=== PATIENT | female | born 1975 | race Caucasian/White ===

== ENCOUNTER 2016-09-09 11:23 | Emergency (ER) | payer OTHER ==
[~2016-09-09] VITALS: Ht 165.1 cm; Wt 74.0 kg
[2016-09-09 11:43] VITALS: BP 114/81; PULSE 75; RESP 16; O2SAT 100
--- NOTE | 2016-09-09 11:56 | ED.REPORT ---
HPI-Chest Pain 40 and Over Date of Service Sep 09, 2016 ED Provider: Ryan Coronado MD History of Present Illness: Please note the actual complaint is palpitations, there is no template for palpitations in the system, so this template proceeded The patient is a 40 year old female with history of rheumatoid arthritis and Harsh's thyroiditis disease, who was sent to the emergency department from urgent care for palpitations that she began 3 nights ago. On Wednesday night she noticed about 3 flutters a minute from 10 PM to 4 AM. The next evening it occurred again from 7 PM to 12 AM. Last night she noticed flutters every 9-13 heart beats. Along with the palpitations she has also experienced chest "soreness." Her pain radiates to the left side of her jaw. On her walk yesterday she was more breathless than normal. She has noticed fluttering for quite a while but it has never been this severe or frequent. She has not noticed shortness of breath at rest, nausea, diaphoresis, lower extremity swelling. She does report 30 pound weight gain since December. She denies recent changes in medications. Her mother of congestive heart failure in her late 50's. Nursing Notes Stated Complaint: HEART ISSUES Chief Complaint: Chest Pain Nursing Notes Reviewed: Yes ([employer] not reconciled) Allergies: Coded Allergies: Penicillins (Verified Allergy, Severe, 12/25/08) Sulfa (Sulfonamide Antibiotics) (Verified Adverse Reaction, Intermediate, Hives, 09/09/16) erythromycin base (Verified Adverse Reaction, Intermediate, unknown, ) General Time Seen by MD: 11:54 Chief Complaint Chest pain, Other (palpitations) Hx Obtained From: Patient Arrived By: Walk-in Sudden in Onset?: Yes Onset Occurred: 3 days ago Symptom Duration: Intermittent Location: : Chest left: Chest right Quality: Painful (soreness) Radiation: : Jaw Severity: Current: Pain level 2 out of 10 Severity: Maximum: Severe Recent Healthcare: No recent hospitalization, Recent doctor visit Similar Sx Previous: Yes Risk Factors )( PE Risk Stratification Other (rheumatoid ) Past Medical History Past Medical History h/o rheumatoid arthritis (on hydroxychloroquine, prednisone, and Xeljianz) Harsh's thyroiditis Past Surgical History None Family History Mother of congestive heart failure on her late 50's. IA in 's Smoking History Never Smoker Social History Alcohol Use: Denies alcohol use Drug Use: Denies drug use Other Social History: Good social support, , Lives with children, Local resident Occupation [employer] Status Independent Review of Systems Review of Systems Note: +jaw pain + recent weight gain Respiratory: Reports: Dyspnea on exertion, Denies: Shortness of breath Cardiovascular: Reports: Chest pain, Palpitations GI: Denies: Nausea Skin: Denies Diaphoresis Complete sys rev & neg: except as marked. Physical Exam Initial Vital Signs Vital Signs (First) Date Time Temp Pulse Resp B/P Pulse Ox O2 Delivery O2 Flow Rate FiO2 09/09/16 11:43 37.2 75 16 114/81 100 09/09/16 12:10 Room Air Initial VS: Reviewed, Vital signs normal Head / Eyes: Atraumatic, Normocephalic, PERRL ENT: Mucous membranes moist, Conjunctiva normal, No scleral icterus Neck: Supple, Non-tender, Full range of motion Lymphatic: No lymphadenopathy Extremities: Vascular intact, Neuro intact, No swelling, No tenderness Skin: Warm, Dry, No cyanosis Neurologic: Alert, Oriented, Nonfocal Psychiatric: Mood/affect normal, Behavior normal, Normal thought content General/Constitutional: Awake, Alert, No acute distress, Well appearing Respiratory / Chest: Atraumatic, Breath sounds NL, Breath sounds = bilat, No respiratory distress, No rales, No rhonchi, No wheezing, No stridor, No chest tenderness Cardiovascular: Heart rate NL, Regular rhythm, Heart sounds NL, No murmurs, Peripheral circulation NL, Pulses = bilaterally, No gross BP differential Abdomen: Atraumatic, Soft, Non-tender, McBurney's non-tender, No guarding, No rebound, BS normoactive, No distention, No hernia, No palpable mass Interpretation & Diagnostics Lab Results Interpretation Result Diagram: 09/09/16 1121 09/09/16 1121 Test 09/09/16 11:21 09/09/16 12:30 09/09/16 13:20 09/09/16 14:30 White Blood Count 7.0th/mm3 (3.8-10.1) Red Blood Count 4.31mil/mm3 (3.90-5.20) Hemoglobin 11.9g/dL (12.0-15.6) Hematocrit 37.2% (35.0-46.0) Mean Corpuscular Volume 86.3fL (81-100) Mean Corpuscular Hemoglobin 27.6pg (27.0-35.0) Mean Corpuscular Hemoglobin Concent 32.0% (32.0-37.0) Red Cell Distribution Width 13.7% (12.3-15.4) Platelet Count 236bil/L (150-400) Neutrophils (%) (Auto) 68.7% (40-74) Lymphocytes (%) (Auto) 17.9% (14-46) Monocytes (%) (Auto) 11.5% (4-12) Eosinophils (%) (Auto) 1.4% (0-5) Basophils (%) (Auto) 0.4% (0-3) Sodium Level 137mEq/L (134-144) Potassium Level 3.9mEq/L (3.5-5.2) Chloride Level 101mEq/L (97-108) Carbon Dioxide Level 24mmol/L (18-29) Blood Urea Nitrogen 11mg/dL (6-24) Creatinine 0.65mg/dL (0.57-1.00) Estimat Glomerular Filtration Rate 143mL/min (>59) Glucose Level 96mg/dL (60-99) Calcium Level 9.1mg/dL (8.5-10.1) Magnesium Level 2.1mg/dL (1.6-2.6) Total Bilirubin 0.3mg/dL (0.0-1.2) Aspartate Amino Transf (AST/SGOT) 15U/L (0-50) Alanine Aminotransferase (ALT/SGPT) 8U/L (0-32) Alkaline Phosphatase 56U/L (25-150) Total Protein 7.4g/dL (6.4-8.4) Albumin 4.3g/dL (3.4-5.0) Thyroid Stimulating Hormone (TSH) 1.660uIU/mL (0.450-4.500) Free Thyroxine 1.39ng/dL (0.82-1.77) D-Dimer < 0.50mg/L FEU (<0.50) Hold Urine Received (Received) Troponin T < 0.010ug/L (0.0-0.011) Lab Results Interpretation: CBC normal CMP normal D-dimer negative Troponin negative -or 3 days of symptoms continuously, serial troponins not indicated ECG Interpretation ECG Interpretation: Sinus rhythm with a rate of 73 Time: 12:01 Interpreted by: ED physician X-Ray Chest Interpretation Chest Xray Interpretation: IMPRESSION: No acute cardiopulmonary disease. Dictated by: Joao Sagastume M.D. on 09/09/2016 at 11:49 Interpretation / Wet Read by: Interpret - Radiologist Re-Eval/Medical Decision Med Decision/Clinical Course This is a 40-year-old female presents with three-day history of progressive palpitations, but also had a little bit discomfort in the jaw and shoulder. Symptoms are Nonexertional, although she gets some shortness of breath with exertion which is chronic with her rheumatoid. She reports she occasionally gets a "skipped beat now and then", but this is been much more persistent and more severe-after 3 days as she came in to get checked out. She is referred over from urgent care. Exam she clinically appears well, and is in no distress. She has no findings of heart failure, no findings of venous thromboembolism. She does have a family history of heart disease. Her EKG is normal. Blood work including troponin-in with 3 days of symptoms- particularly simply a palpitations, argues against acute cord syndrome/IA. Her potassium and magnesium are normal. Her d-dimer is negative given the increased risk associated with rheumatoid arthritis, but in this setting with otherwise low probability there is no findings of PE. I am not finding indication for additional testing. Patient is reassured-in the department while on the monitor she did have occasional intermittent symptomatic PVCs which reproduced her symptoms. Patient is discharged in good condition. Source of Hx: Old records Time of Eval: 14:32 Re-Evaluation/Progress Note: Discussed results, diagsnosis, and plan for discharge. All questions were addressed. Differential Diagnosis: Positive: Dysrhythmia (PVCs), Negative: Acute coronary syndrome, Acute myocardial infarct, Aortic dissection, Gun shot wound chest, Hiatal hernia, Pneumomediastinum, Pneumonia, Pneumothorax, Pulmonary edema, Pulmonary embolism, Stab wound chest, Stable angina, Unstable angina Counseled Regarding: Diagnosis, Lab results, Need for follow-up, When/why to return to ED Discharge & Departure Primary Impression: Premature ventricular contractions (PVCs) (VPCs) Disposition: Home Discharge Condition All VS Reviewed: Yes Condition: Stable Additional Instructions: 1. Your symptoms are from premature ventricular contractions ("PVC's"), which while annoying are benign and usually resolve with time. 2. Your blood tests, including thyroid tests were entirely normal. 3. Activiteis and diet as tolerated. 4. Return if new or worsening symptoms. Referrals: Ange Horne (PCP) Scribe Attestation Portions of this note were transcribed by Nicky lCark. I, Dr. Coronado personally performed the history, physical exam and medical decision-making; I reviewed and confirmed the accuracy of the information in the transcribed note. Signed by: Yohannes Smith, 09/09/2016 at 1500. copies to: Ange Horne Matthew F MD Sep 09, 2016 11:56 Nicky Clark Sep 09, 2016 12:17
[2016-09-09 12:10] VITALS: BP 111/75; PULSE 72; RESP 14; O2SAT 100
[2016-09-09 12:38] LABS: BASOPHILS % (AUTO) 0.4 % (0-3); EOSINOPHILS % (AUTO) 1.4 % (0-5); MONOCYTES % (AUTO) 11.5 % (4-12); Mean Corpuscular Hemoglobin 27.6 pg (27.0-35.0); Mean Corpuscular Volume 86.3 fL (81-100); NEUTROPHILS % (AUTO) 68.7 % (40-74); Platelet Count 236 bil/L (150-400)
[2016-09-09 12:48] LABS: Magnesium 2.1 mg/dL (1.6-2.6)
--- NOTE | 2016-09-09 12:52 | DRSVH ---
PROCEDURE: X-RAY CHEST ONE VIEW, PORTABLE ([id number]) INDICATIONS: 40 year-old female with chest pain and palpitations for 2 weeks. TECHNIQUE: One view of the chest was acquired. COMPARISON: None. FINDINGS: Surgical changes and devices: None. Lungs and pleura: No pleural effusions or pneumothorax. Lungs are clear. Mediastinum: Mediastinal contours appear normal. Heart size is normal. Bones and chest wall: No suspicious bony lesions. Overlying soft tissues appear unremarkable. IMPRESSION: No acute cardiopulmonary disease. Dictated by: Joao Sagastume M.D. on 09/09/2016 at 11:49 Approved by: Joao Sagastume M.D. on 09/09/2016 at 11:50
[2016-09-09 14:44] VITALS: BP 108/69; PULSE 78; RESP 16; O2SAT 97
== END 2016-09-09 14:45 | disposition home or self-care (01) ==
LOC: SED 11:23
DX: I49.3 Ventricular premature depolarization (principal); M06.9 Rheumatoid arthritis, unspecified; E06.3 Autoimmune thyroiditis; Z88.0 Allergy status to penicillin; Z88.2 Allergy status to sulfonamides; Z88.8 Allergy status to other drugs, medicaments and biological substances
CPT/HCPCS: 36415; 71010; 80053; 82948; 83735; 84439; 84443; 84484; 85025; 85378; 93005; 99285; G0463